=== PATIENT | male | born 1995 | race Caucasian/White ===

== ENCOUNTER 2020-05-17 14:00 | Emergency (ER) | payer BC, OTHER ==
[2020-05-17] MEDS ORDERED: Ondansetron PF 4 MG/2 ML Vial ONE (14:23)
[2020-05-17] MEDS ORDERED: Morphine 4 MG/ML VIAL ONE (14:23)
[2020-05-17] MEDS ORDERED: Ketorolac Tromethamine 30 MG/ML VIAL ONE (14:24)
== END 2020-05-17 15:43 | disposition home or self-care (01) ==
LOC: CSHERS 14:00
DX: S43.102A Unspecified dislocation of left acromioclavicular joint, initial encounter (principal); R07.89 Other chest pain; V87.8XXA Person injured in other specified noncollision transport accidents involving motor vehicle (traffic), initial encounter
CPT/HCPCS: 71260; 74177; 96374; 96375; J1885; J2270; J2405